=== PATIENT | female | born 1995 | race Caucasian/White ===

== ENCOUNTER 2017-07-05 10:23 | Outpatient (CLI) | payer MEDICAID ==
[~2017-07-05] VITALS: Ht 162.6 cm; Wt 104.3 kg
[2017-07-05 10:29] VITALS: BP 124/65; PULSE 85; RESP 20; Ht 162.6 cm; Wt 104.3 kg
[2017-07-05] MEDS ORDERED: TERBUTALINE 1 MG/ML INJ SC PRN (12:30)
[2017-07-05 13:00] LABS: ADD UMIC YES; UR ASCORBIC ACID 20 mg/dL (NEGATIVE); UR BACTERIA FEW /HPF (NONE SEEN); UR BILIRUBIN (Dip) NEGATIVE (NEGATIVE); UR BLOOD (Dip) NEGATIVE (NEGATIVE); UR CLARITY CLEAR (CLEAR); UR COLOR YELLOW (YELLOW); UR GLUCOSE (Dip) NEGATIVE (NEGATIVE); UR KETONES (Dip) NEGATIVE (NEGATIVE); UR LEUKOCYTE ESTERASE (Dip) 2+ Leu/ul (NEGATIVE); UR MUCUS FEW /HPF (NONE SEEN); UR NITRITE (Dip) NEGATIVE (NEGATIVE); UR RBC 2 /HPF (0-5); UR SPECIFIC GRAVITY (Dip) 1.009 (1.003-1.030); UR SQUAMOUS EPITHELIAL CELL FEW /HPF (FEW); UR TOTAL PROTEIN (Dip) NEGATIVE (NEGATIVE); UR UROBILINOGEN (Dip) NEGATIVE (NEGATIVE)
[2017-07-05 13:24] LABS: BARBITURATES Negative (NEGATIVE); BENZODIAZEPINES Negative (NEGATIVE); CANNABINOIDS Negative (NEGATIVE); COCAINE Negative (NEGATIVE); OPIATES Negative (NEGATIVE)
--- NOTE | 2017-07-05 13:54 | RADRPT ---
PROCEDURE: Obstetrical ultrasound CLINICAL INDICATION: . OB ultrasound with fluid volume assessment. Premature contraction s TECHNIQUE: Transabdominal and transvaginal sonographic images of the uterus obtained afte r the first trimester, greater than 14 weeks gestation. Single intrauterine gestation present. [facility] for fluid volume assessment. COMPARISON: None available. FINDINGS: Presentation: Cephalic Partially visualized placenta: anterior heart rate: 148 Beats per minute. Cervix is closed as visualized transvaginally measuring 3.8 cm. IMPRESSION: Amniotic fluid index equals 11.3 cm. RPTAT: AADD .Espinoza Brandon MD, MD Date Time Electronically viewed and signed by .Espinoza Brandon MD, MD on 07/05/2017 13:53 .B/
--- NOTE | 2017-07-05 18:26 | PN ---
Triage Information Date/Time July 05, 2017 Reason for visit: Uterine contractions Weeks of Gestation 32 weeks and 2 days /Para 1 para 0 Diabetes: none Hypertention: none Additional information 22-year-old with IUP at 32 weeks and 2 days with care at outside facility presents with complaint of uterine contractions. Denies any leaking of fluid, vaginal bleeding or decreased movements. Denies any urinary symptoms. Objective Vital Signs Date Time Temp Pulse Resp B/P Pulse Ox O2 Delivery O2 Flow Rate FiO2 07/05/17 10:29 98.7 85 20 124/65 97 Heart Rate: 130's Contractions: < 5 Minutes Apart Exam Const: Alert and oriented 4 does not appear to be in any acute distress Head: [Atraumatic] Abd: [Soft, non tender, non distended. Normal bowel sounds]. Gravid fundal height consistent with gestational age. Ext: [No cyanosis, or edema] NST: Category 1 and appropriate for gestational age Cervical length: 3.8 FFM: Negative UDS negative Results/Medications Results 24 hrs Laboratory Tests Test 07/05/17 12:20 07/05/17 12:25 Urine Color YELLOW Urine Clarity CLEAR Urine pH 7.0 Urine Specific [place] 1.009 Urine Ketones NEGATIVE Urine Nitrite NEGATIVE Urine Bilirubin NEGATIVE Urine Urobilinogen NEGATIVE Urine Leukocyte Esterase 2+ H Urine Microscopic RBC 2 Urine Microscopic WBC 4 Urine Squamous Epithelial Cells FEW Urine Bacteria FEW A Urine Mucus FEW A Urine Hemoglobin NEGATIVE Urine Glucose NEGATIVE Urine Total Protein NEGATIVE Urine Opiates Screen Negative Urine Barbiturates Negative Urine Amphetamines Screen Negative Urine Benzodiazepines Screen Negative Urine Cocaine Screen Negative Urine Cannabinoids Negative Fibronectin NEGATIVE Imaging Results PROCEDURE: Obstetrical ultrasound CLINICAL INDICATION: . OB ultrasound with fluid volume assessment. Premature contractions TECHNIQUE: Transabdominal and transvaginal sonographic images of the uterus obtained after the first trimester, greater than 14 weeks gestation. Single intrauterine gestation present. Examination for fluid volume assessment. COMPARISON: None available. FINDINGS: Presentation: Cephalic Partially visualized placenta: anterior heart rate: 148 Beats per minute. Cervix is closed as visualized transvaginally measuring 3.8 cm. IMPRESSION: Amniotic fluid index equals 11.3 cm. RPTAT: AADD Disposition: Discharge Assessment/Plan IUP at 32 weeks and 2 days contraction but no evidence of labor False labor pain Resolved with IV hydration Patient was asymptomatic after observation and hydration Strict labor precaution and kick count and follow-up with OB office within 24-48 hours recommended Patient verbalized understanding and all questions were answered SUSAN OTTO MD Jul 05, 2017 18:26
--- NOTE | 2017-07-05 20:16 | TRIAGE ---
OB Triage Datetime Report Generated by CPN: 07/05/2017 20:15 Datetime: 07/05/2017 15:40 Stage of : OB Triage Datetime: 07/05/2017 13:20 Stage of : OB Triage Maternal Assessment Level of Consciousness: Fully Conscious Headache: Denies Nausea/Vomiting: Denies RUQ Epigastric Pain: Denies Labor Evaluation Frequency: 6-8 Monitor Mode: External Duration (sec)2399: 30-60 Quality: Mild Resting Tone [place]: Relaxed Heart Rate FHR Baseline Rate: 145 Monitor Mode: External US FHR Baseline Changes: No Baseline Change Variability: Moderate 6-25 bpm Accelerations: 15X15 Decelerations: None Category: Category I Pain Assessment Pain Scale: 2 Pain Presence: Intermittent Pain Type: Ache Pain Location: vaginal Pain Goal: 0 Pain Relief Measures: Comfort Measures Datetime: 07/05/2017 11:50 Stage of : Antepartum Datetime: 07/05/2017 11:38 Stage of : OB Triage Assessment Type: Triage Maternal Assessment Level of Consciousness: Fully Conscious DTR's/Clonus: DTRs 2+ Headache: Denies Blurred Vision: No Respiratory Effort: Unlabored Breath Sounds, Left: Clear and Equal Breath Sounds, Right: Clear and Equal Nausea/Vomiting: Denies RUQ Epigastric Pain: Denies Lower Extremities Edema: None Upper Extremities Edema: None Facial Edema: None Labor Evaluation Frequency: 5-10 Monitor Mode: External Duration (sec)2399: 30-60 Quality: Mild Resting Tone [place]: Relaxed Heart Rate FHR Baseline Rate: 145 Monitor Mode: External US FHR Baseline Changes: No Baseline Change Variability: Moderate 6-25 bpm Accelerations: 15X15 Decelerations: None Category: Category I Pain Assessment Pain Scale: 2 Pain Presence: Intermittent Pain Type: Ache Pain Location: vaginal Pain Goal: 0 Pain Relief Measures: Comfort Measures Datetime: 07/05/2017 10:28 EGA: 32.2 Datetime: 07/05/2017 10:26 Time of Arrival: 07/05/2017 10:13 Arrived By: Wheelchair Arrived From: Home Chief Complaint: c/o vaginal pain x 2 weeks and worsening; mucusy discharge X 3 months Movement: Present Vaginal Bleeding: None Vaginal Discharge: Present Recent Sexual Intercouse: Denies Abdominal Trauma: Not Applicable Patient Complaints: Other Initial Plan: efm ; r/o labor
--- NOTE | 2017-07-05 20:46 | PN ---
Triage Information Date/Time July 05, 2017 Reason for visit: Uterine contractions Weeks of Gestation 32 weeks and 2 days /Para 1 para 0 Diabetes: none Hypertention: none Additional information 22-year-old with IUP at 32 weeks and 2 days with care at outside facility presents with complaint of contractions. She denies any leaking of fluid vaginal bleeding or decreased movement. Denies any competition during her course. Objective Vital Signs Date Time Temp Pulse Resp B/P Pulse Ox O2 Delivery O2 Flow Rate FiO2 07/05/17 10:29 98.7 85 20 124/65 97 Heart Rate: 130's Contractions: < 5 Minutes Apart Exam Const: A&O, NAD Head: [Atraumatic]. Eyes: [Normal Conjunctiva] ENT: [Normal External Ears, Nose and Mouth.] Neck: [Full range of motion. No meningismus.] Resp: [Clear to auscultation bilaterally] Cardio: [Regular rate and rhythm, no murmurs] Abd: [Soft, non tender, non distended. Normal bowel sounds] Skin: [No petechiae or rashes] Back: [No midline or flank tenderness] Ext: [No cyanosis, or edema] Neuro: [Awake and alert] Psych: [Normal Mood and Affect] Results/Medications Results 24 hrs Laboratory Tests Test 07/05/17 12:20 07/05/17 12:25 Urine Color YELLOW Urine Clarity CLEAR Urine pH 7.0 Urine Specific [place] 1.009 Urine Ketones NEGATIVE Urine Nitrite NEGATIVE Urine Bilirubin NEGATIVE Urine Urobilinogen NEGATIVE Urine Leukocyte Esterase 2+ H Urine Microscopic RBC 2 Urine Microscopic WBC 4 Urine Squamous Epithelial Cells FEW Urine Bacteria FEW A Urine Mucus FEW A Urine Hemoglobin NEGATIVE Urine Glucose NEGATIVE Urine Total Protein NEGATIVE Urine Opiates Screen Negative Urine Barbiturates Negative Urine Amphetamines Screen Negative Urine Benzodiazepines Screen Negative Urine Cocaine Screen Negative Urine Cannabinoids Negative Fibronectin NEGATIVE SUSAN OTTO MD Jul 05, 2017 20:45
== END 2017-07-05 15:10 | disposition home or self-care (01) ==
LOC: OBT 10:23 → L-D 10:23 → OBT 15:10
PROVIDERS: ATTEND Obstetrics & Gynecology
DX: O62.9 Abnormality of forces of labor, unspecified (principal); Z3A.32 32 weeks gestation of pregnancy
CPT/HCPCS: 76815; 76817; 80307; 81001; 82731; 96372; J3105; Z7500; G0463

== ENCOUNTER 2017-09-02 12:10 | Inpatient (IN) | END 2017-09-05 13:38 | disposition home or self-care (01) | DRG 775 ==